=== PATIENT | male | born 2000 | race Caucasian/White ===

== ENCOUNTER 2022-05-08 16:33 | Outpatient (CLI) | payer MEDICAID, SELFPAY ==
[2022-05-08 22:11] LABS: Chloride* 101 mmol/L (96-114); Potassium* 3.4 mmol/L (3.6-5.1); Sodium* 139 mmol/L (135-149)
[2022-05-08 22:14] LABS: Blood Urea Nitrogen* 11 mg/dL (5-24); Carbon Dioxide* 32 mmol/L (20-32); Estimated Glomerular Filt Rate 111 ml/min
[2022-05-08 22:15] LABS: Calcium* 9.5 mg/dL (8.4-10.6); Glucose* 69 mg/dL (60-115)
[2022-05-08 22:58] LABS: HIV 1/2/P24 Combo Screen* Negative (Negative)
[2022-05-09 00:07] LABS: Chlamydia DNA Amplified* NOT DETECTED (No Detected); GC DNA Amplified* NOT DETECTED (No Detected)
[2022-05-11 01:31] LABS: Rapid Plasma Reagin (RPR) Non Reactive (Non Reactive)
== END 2022-05-08 16:34 | disposition home or self-care (01) ==
PROVIDERS: PCP Family Medicine; Visit Provider Family Medicine
DX: K58.9 Irritable bowel syndrome, unspecified (principal); Z11.3 Encounter for screening for infections with a predominantly sexual mode of transmission
CPT/HCPCS: 80048; 86592; 86703; 87491; 87591

== ENCOUNTER 2023-06-25 11:11 | Outpatient (CLI) | payer MEDICAID, SELFPAY | END 2023-06-25 11:12 | disposition home or self-care (01) | LOC: FBOREF 11:12 | PROVIDERS: PCP Family Medicine; Visit Provider Family Medicine | DX: Z13.220 Encounter for screening for lipoid disorders (principal) | CPT/HCPCS: 80061 ==